=== PATIENT | male | born 1975 | race Caucasian/White ===

== ENCOUNTER 2019-04-28 07:27 | Inpatient (IN) | payer OTHER, MEDICAID ==
[2019-04-28 07:59] LABS: ADD MAN DIFF? NO
[2019-04-28 08:01] LABS: ABNORMAL IP MESSAGE 1; BASOPHIL # 0.1 10^3/ul (0.0-0.1); EOSINOPHILS # 0.2 10^3/ul (0.0-0.5); EOSINOPHILS % 4.6 % (0.0-7.0); HEMATOCRIT 20.8 % (42.0-52.0); LYMPHOCYTES # 0.9 10^3/ul (0.8-2.9); LYMPHOCYTES % 16.9 % (15.0-51.0); MEAN CORPUSCULAR HGB CONC 33.2 g/dl (32.0-37.0); MEAN CORPUSCULAR VOLUME 78.5 fl (82.0-101.0); MEAN PLATELET VOLUME 10.9 fl (7.4-10.4); MONOCYTE # 0.5 10^3/ul (0.3-0.9); MONOCYTES % 8.9 % (0.0-11.0); NEUTROPHIL # 3.4 10^3/ul (1.6-7.5); NEUTROPHILS % 67.6 % (39.0-77.0); PLATELET COUNT 180 10^3/UL (140-415); POSITIVE DIFF @See below; RED BLOOD COUNT 2.65 10^6/ul (4.70-6.10); RED CELL DISTRIBUTION WIDTH 14.6 % (11.5-14.5)
[2019-04-28 08:08] LABS: AADO2 Venous 121.9 mmHg; MODE NASAL CANNULA; MetHgb Venous 1.3 %; Sample Type Blood venous; Site OTHER; Venous Fraction OxyHgb 24.2 %; Venous Oxygen Sat 24.8 mmHG (55.0-75.0); Venous Total Hemglobin 7.1 g/dl
[2019-04-28 08:09] LABS: HEMOGLOBIN 6.9 g/dl (14.0-18.0)
[2019-04-28 08:10] LABS: PATH REVIEW? YES
[2019-04-28] MEDS: NALOXONE (0.4 MG/ML) INJ IV (08:39)
[2019-04-28 08:50] LABS: ALANINE AMINOTRANSFERASE 26 IU/L (13-69); ALBUMIN/GLOBULIN RATIO 1.53; ALKALINE PHOSPHATASE 70 IU/L (42-121); ANION GAP 14 (5-13); ASPARTATE AMINO TRANSFERASE 21 IU/L (15-46); BILIRUBIN,INDIRECT 0.1 mg/dl (0-1.1); BILIRUBIN,TOTAL 0.1 mg/dl (0.2-1.3); BLOOD UREA NITROGEN 50 mg/dl (7-20); CALCIUM 8.7 mg/dl (8.4-10.2); CARBON DIOXIDE 28 mmol/L (21-31); CHLORIDE 88 mmol/L (97-110); CREATININE 4.84 mg/dl (0.61-1.24); Estimated GFR 13 mL/min (>60); GLUCOSE 388 mg/dl (70-220); LIPASE 229 U/L (23-300); POTASSIUM 3.7 mmol/L (3.5-5.1); SODIUM 130 mmol/L (135-144); TOTAL PROTEIN 6.6 g/dl (6.1-8.1)
[2019-04-28] MEDS ORDERED: ONDANSETRON 4 MG INJ IV (09:30)
[2019-04-28] MEDS ORDERED: ACETAMINOPHEN 325 MG TAB PO (09:30)
[2019-04-28] MEDS ORDERED: SOD CHLORIDE 0.45% 1,000 ML IV (09:52)
[2019-04-28] MEDS ORDERED: ALBUTEROL/IPRATROPIUM (NEB) 3 ML AMP HHN (10:00)
[2019-04-28] MEDS ORDERED: NITROGLYCERIN (SL) 0.4 MG TAB SL (10:00)
[2019-04-28] MEDS ORDERED: DOCUSATE SODIUM 100 MG CAP PO (10:00)
[2019-04-28] MEDS ORDERED: MAGNESIUM HYDROXIDE 30ML CUP PO (10:00)
[2019-04-28] MEDS ORDERED: NACL 0.9% 3 ML SYG IV (10:00)
[2019-04-28] MEDS: PANTOPRAZOLE IV 80 MG in SOD CHLORIDE 0.9% 100 ML IV ×3 (10:00→20:29)
[2019-04-28] MEDS ORDERED: morphine 2 MG INJ IV (10:00)
[2019-04-28 10:09] LABS: ANISOCYTOSIS 2+ (0-0); BAND NEUTROPHILS #M 0.2 10^3/ul (0.0-0.6); BAND NEUTROPHILS % (M) 4 % (0-4); EOSINOPHILS % (M) 7 % (0-7); LYMPHOCYTES #M 0.8 10^3/ul (0.8-2.9); LYMPHOCYTES % (M) 16 % (15-51); MICROCYTOSIS 1+ (0-0); MONOCYTE #M 0.4 10^3/ul (0.3-0.9); MONOCYTES % (M) 9 % (0-11); PLATELET ESTIMATE NORMAL; POLYCHROMASIA 3+ (0-0); SEG NEUT #M 3.2 10^3/ul (1.6-7.5); SEGMENTED NEUTROPHILS (M) % 64 % (39-77); SMUDGE%M 3 % (0-0)
[2019-04-28 10:29] LABS: FREE T4 (FREE THYROXINE) 1.62 ng/dl (0.64-1.79)
[2019-04-28] MEDS ORDERED: GLUCAGON 1 MG INJ IM (11:00)
[2019-04-28] MEDS ORDERED: GLUCOSE GEL 15 GRAM TUBE PO ×2 (11:00)
[2019-04-28] MEDS ORDERED: GLUCOSE GEL 15 GRAM TUBE BUCCAL (11:00)
[2019-04-28] MEDS ORDERED: DEXTROSE 50% 50 ML SYRINGE IV ×2 (11:00)
[2019-04-28] MEDS: PANTOPRAZOLE IV 80 MG in SOD CHLORIDE 0.9% 100 ML IVPB (11:11)
[2019-04-28] MEDS: SEVELAMER CARBONATE 0.8 GM PKT PO ×2 (12:00→17:03)
[2019-04-28 13:46] LABS: IMMEDIATE SPIN CROSSMATCH 1 1
[2019-04-28] MEDS: INSULIN ASPART [NOVOLOG] 3 ML PEN SC ×3 (14:27→20:46)
[2019-04-28 16:01] LABS: HEPATITIS B SURFACE ANTIGEN NEGATIVE (NEGATIVE)
[2019-04-28] MEDS: hydrALAzine 20 MG INJ IV (16:03)
[2019-04-28 16:46] LABS: HEPATITIS B SURFACE ANTIBODY POSITIVE (NEGATIVE)
[2019-04-28 20:18] LABS: HEMATOCRIT 25.4 % (42.0-52.0); HEMOGLOBIN 8.3 g/dl (14.0-18.0)
[2019-04-28] MEDS: LORAZEPAM 2 MG INJ IV (20:32)
[2019-04-28] MEDS: INSULIN GLARGINE [LANTus] (100 UNITS/ML) SYG SC (20:40)
[2019-04-29] MEDS: INSULIN ASPART [NOVOLOG] 3 ML PEN SC ×6 (01:00→20:11)
[2019-04-29] MEDS: HYDROCODONE/APAP (5/325) TAB PO ×3 (05:22→23:15)
[2019-04-29] MEDS: PANTOPRAZOLE IV 80 MG in SOD CHLORIDE 0.9% 100 ML IV ×2 (05:26→17:12)
[2019-04-29 06:25] LABS: ADD MAN DIFF? NO
[2019-04-29 06:39] LABS: WHITE BLOOD COUNT 5.2 10^3/ul (4.8-10.8)
[2019-04-29 06:39] LABS: BASOPHIL # 0.1 10^3/ul (0.0-0.1); BASOPHILS % 1.3 % (0.0-2.0); EOSINOPHILS # 0.4 10^3/ul (0.0-0.5); EOSINOPHILS % 7.3 % (0.0-7.0); HEMATOCRIT 26.5 % (42.0-52.0); HEMOGLOBIN 8.5 g/dl (14.0-18.0); LYMPHOCYTES # 1.2 10^3/ul (0.8-2.9); LYMPHOCYTES % 22.6 % (15.0-51.0); MEAN CORPUSCULAR HGB CONC 32.1 g/dl (32.0-37.0); MEAN PLATELET VOLUME 10.4 fl (7.4-10.4); MONOCYTE # 0.4 10^3/ul (0.3-0.9); MONOCYTES % 8.3 % (0.0-11.0); NEUTROPHIL # 3.1 10^3/ul (1.6-7.5); NEUTROPHILS % 60.1 % (39.0-77.0); PLATELET COUNT 174 10^3/UL (140-415); RED BLOOD COUNT 3.27 10^6/ul (4.70-6.10); RED CELL DISTRIBUTION WIDTH 15.1 % (11.5-14.5)
[2019-04-29 07:04] LABS: INR 0.96; PROTIME 12.9 Sec (11.9-14.9)
[2019-04-29 07:19] LABS: CHOLESTEROL 117 mg/dl (100-200)
[2019-04-29 07:19] LABS: ANION GAP 14 (5-13); BLOOD UREA NITROGEN 64 mg/dl (7-20); CALCIUM 9.1 mg/dl (8.4-10.2); CARBON DIOXIDE 28 mmol/L (21-31); CHLORIDE 89 mmol/L (97-110); CHOL/HDL RATIO 5.5 RATIO; CREATININE 7.65 mg/dl (0.61-1.24); Estimated GFR 8 mL/min (>60); GLUCOSE 152 mg/dl (70-220); HDL CHOLESTEROL 21 mg/dl (27-67); LDL CHOLESTEROL,CALCULATED 43 mg/dl; MAGNESIUM 2.2 mg/dl (1.7-2.5); POTASSIUM 4.1 mmol/L (3.5-5.1); SODIUM 131 mmol/L (135-144); TRIGLYCERIDES 263 mg/dl (0-149)
[2019-04-29] MEDS: SEVELAMER CARBONATE 0.8 GM PKT PO ×3 (08:06→17:12)
[2019-04-29] MEDS: ONDANSETRON 4 MG INJ IV (08:07)
[2019-04-29] MEDS: FOLIC ACID 1 MG TAB PO (08:07)
[2019-04-29 08:22] LABS: HEMOGLOBIN A1C 11.1 % (0-5.9)
[2019-04-29] MEDS: EPOETIN ALFA-EPBX (ESRD) 10,000 UNIT/ML VIAL SC ×2 (08:35→12:55)
[2019-04-29] MEDS: LORAZEPAM 2 MG INJ IV ×2 (08:56→21:14)
[2019-04-29] MEDS: ALTEPLASE (CATHFLO) 2 MG INJ CATHETER (12:09)
[2019-04-29] MEDS: ISOSORBIDE MONONITRATE(SR)30 MG TAB PO (15:38)
[2019-04-29] MEDS: AMLODIPINE 10 MG TAB PO (15:38)
[2019-04-29] MEDS: INSULIN GLARGINE [LANTus] (100 UNITS/ML) SYG SC (20:11)
[2019-04-30] MEDS: PANTOPRAZOLE IV 80 MG in SOD CHLORIDE 0.9% 100 ML IV ×3 (01:53→22:43)
[2019-04-30] MEDS: ACCU-CHEK XX (01:55)
[2019-04-30] MEDS: ONDANSETRON 4 MG INJ IV ×3 (06:35→17:44)
[2019-04-30 07:34] LABS: ADD MAN DIFF? NO
[2019-04-30 07:48] LABS: WHITE BLOOD COUNT 4.6 10^3/ul (4.8-10.8)
[2019-04-30 07:48] LABS: BASOPHILS % 0.9 % (0.0-2.0); EOSINOPHILS # 0.3 10^3/ul (0.0-0.5); EOSINOPHILS % 5.8 % (0.0-7.0); HEMATOCRIT 28.2 % (42.0-52.0); LYMPHOCYTES # 1.1 10^3/ul (0.8-2.9); LYMPHOCYTES % 23.1 % (15.0-51.0); MEAN CORPUSCULAR HEMOGLOBIN 26.2 pg (29.0-33.0); MEAN CORPUSCULAR HGB CONC 31.9 g/dl (32.0-37.0); MEAN CORPUSCULAR VOLUME 82.2 fl (82.0-101.0); MEAN PLATELET VOLUME 10.6 fl (7.4-10.4); MONOCYTE # 0.5 10^3/ul (0.3-0.9); MONOCYTES % 10.3 % (0.0-11.0); NEUTROPHIL # 2.8 10^3/ul (1.6-7.5); NEUTROPHILS % 59.5 % (39.0-77.0); PLATELET COUNT 182 10^3/UL (140-415); RED BLOOD COUNT 3.43 10^6/ul (4.70-6.10); RED CELL DISTRIBUTION WIDTH 15.1 % (11.5-14.5)
[2019-04-30 08:18] LABS: ANION GAP 14 (5-13); BLOOD UREA NITROGEN 41 mg/dl (7-20); CALCIUM 9.7 mg/dl (8.4-10.2); CARBON DIOXIDE 26 mmol/L (21-31); CHLORIDE 93 mmol/L (97-110); CREATININE 7.17 mg/dl (0.61-1.24); Estimated GFR 8 mL/min (>60); GLUCOSE 249 mg/dl (70-220); POTASSIUM 4.3 mmol/L (3.5-5.1); SODIUM 133 mmol/L (135-144)
[2019-04-30] MEDS: HYDROCODONE/APAP (5/325) TAB PO ×2 (09:38→23:01)
[2019-04-30] MEDS: ISOSORBIDE MONONITRATE(SR)30 MG TAB PO (09:38)
[2019-04-30] MEDS: AMLODIPINE 10 MG TAB PO (09:38)
[2019-04-30] MEDS: FOLIC ACID 1 MG TAB PO (09:38)
[2019-04-30] MEDS: SEVELAMER CARBONATE 0.8 GM PKT PO ×3 (09:39→17:44)
[2019-04-30] MEDS: LISINOPRIL 20 MG TAB PO (09:44)
[2019-04-30] MEDS: INSULIN ASPART [NOVOLOG] 3 ML PEN SC ×7 (09:55→20:43)
[2019-04-30] MEDS: LORAZEPAM 2 MG INJ IV ×2 (11:26→21:10)
[2019-04-30] MEDS: SOD CHLORIDE 0.9% 1,000 ML IV (14:37)
[2019-04-30] MEDS: LABETALOL 200 MG TAB PO ×2 (14:37→20:43)
[2019-04-30] MEDS: INSULIN GLARGINE [LANTus] (100 UNITS/ML) SYG SC (14:58)
[2019-04-30] MEDS: BISACODYL (EC) 5 MG TAB PO (15:57)
[2019-04-30] MEDS: PEG/ELECTROLYTES 4L BTL PO (17:43)
[2019-05-01] MEDS: ONDANSETRON 4 MG INJ IV ×3 (01:38→18:08)
[2019-05-01] MEDS: ACCU-CHEK XX (02:00)
[2019-05-01] MEDS: SOD CHLORIDE 0.9% 1,000 ML IV ×3 (02:42→18:08)
[2019-05-01] MEDS: LORAZEPAM 2 MG INJ IV ×3 (03:13→18:08)
[2019-05-01] MEDS: BISACODYL (EC) 5 MG TAB PO (05:25)
[2019-05-01] MEDS: PEG/ELECTROLYTES 4L BTL PO (05:25)
[2019-05-01 05:27] LABS: ADD MAN DIFF? NO
[2019-05-01 05:29] LABS: WHITE BLOOD COUNT 5.6 10^3/ul (4.8-10.8)
[2019-05-01 05:29] LABS: BASOPHIL # 0.1 10^3/ul (0.0-0.1); BASOPHILS % 0.9 % (0.0-2.0); EOSINOPHILS # 0.3 10^3/ul (0.0-0.5); EOSINOPHILS % 5.4 % (0.0-7.0); HEMATOCRIT 25.2 % (42.0-52.0); HEMOGLOBIN 8.2 g/dl (14.0-18.0); LYMPHOCYTES # 1.2 10^3/ul (0.8-2.9); LYMPHOCYTES % 22.1 % (15.0-51.0); MEAN CORPUSCULAR HEMOGLOBIN 26.9 pg (29.0-33.0); MEAN CORPUSCULAR HGB CONC 32.5 g/dl (32.0-37.0); MEAN CORPUSCULAR VOLUME 82.6 fl (82.0-101.0); MEAN PLATELET VOLUME 9.5 fl (7.4-10.4); MONOCYTE # 0.6 10^3/ul (0.3-0.9); MONOCYTES % 10.2 % (0.0-11.0); NEUTROPHIL # 3.4 10^3/ul (1.6-7.5); NEUTROPHILS % 61.2 % (39.0-77.0); PLATELET COUNT 150 10^3/UL (140-415); RED BLOOD COUNT 3.05 10^6/ul (4.70-6.10); RED CELL DISTRIBUTION WIDTH 15.3 % (11.5-14.5)
[2019-05-01 06:26] LABS: ANION GAP 16 (5-13); BLOOD UREA NITROGEN 46 mg/dl (7-20); CALCIUM 9.5 mg/dl (8.4-10.2); CARBON DIOXIDE 23 mmol/L (21-31); CHLORIDE 94 mmol/L (97-110); CREATININE 8.57 mg/dl (0.61-1.24); Estimated GFR 7 mL/min (>60); GLUCOSE 142 mg/dl (70-220); POTASSIUM 4.3 mmol/L (3.5-5.1); SODIUM 133 mmol/L (135-144)
[2019-05-01] MEDS: HYDROCODONE/APAP (5/325) TAB PO ×2 (07:00→20:53)
[2019-05-01 07:11] LABS: IRON 51 ug/dl (35-150)
[2019-05-01 07:20] LABS: % IRON SATURATION 19 % SAT (22-52); TOTAL IRON BINDING CAPACITY 262 ug/dl (241-421)
[2019-05-01] MEDS: INSULIN ASPART [NOVOLOG] 3 ML PEN SC ×7 (07:55→21:00)
[2019-05-01] MEDS: ISOSORBIDE MONONITRATE(SR)30 MG TAB PO (08:29)
[2019-05-01] MEDS: SEVELAMER CARBONATE 0.8 GM PKT PO ×3 (08:29→19:48)
[2019-05-01] MEDS: LISINOPRIL 20 MG TAB PO (08:29)
[2019-05-01] MEDS: AMLODIPINE 10 MG TAB PO (08:29)
[2019-05-01] MEDS: LABETALOL 200 MG TAB PO ×3 (08:29→20:54)
[2019-05-01] MEDS: FOLIC ACID 1 MG TAB PO (08:29)
[2019-05-01] MEDS: PANTOPRAZOLE IV 80 MG in SOD CHLORIDE 0.9% 100 ML IV (09:41)
[2019-05-01] MEDS: PROPOFOL 60 ML (16:02)
[2019-05-01] MEDS: LIDOCAINE 2% (SDV) 5 ML INJ (16:02)
[2019-05-01] MEDS ORDERED: FENTAnyl 50 MCG/ML VIAL IV (17:30)
[2019-05-01] MEDS ORDERED: hydrALAzine 20 MG INJ IV (17:30)
[2019-05-01] MEDS ORDERED: LABETALOL HCL 20MG INJ IV (17:30)
[2019-05-01] MEDS ORDERED: ONDANSETRON 4 MG INJ IV (17:30)
[2019-05-01] MEDS ORDERED: EPHEDrine 25 MG/5 ML SYG IV (17:30)
[2019-05-01] MEDS: EPOETIN ALFA-EPBX (ESRD) 10,000 UNIT/ML VIAL SC (18:00)
[2019-05-01] MEDS ORDERED: COLLAGENASE 5 GM (UD JAR) TOP ×2 (20:30)
[2019-05-01] MEDS: COLLAGENASE 5 GM (UD JAR) TOP (21:28)
[2019-05-01] MEDS: INSULIN GLARGINE [LANTus] (100 UNITS/ML) SYG SC (21:30)
[2019-05-02] MEDS: LOPERAMIDE 2 MG CAP PO ×2 (00:04→05:26)
[2019-05-02] MEDS: ACETAMINOPHEN 325 MG TAB PO (00:35)
[2019-05-02] MEDS: LORAZEPAM 2 MG INJ IV ×3 (00:56→12:56)
[2019-05-02] MEDS: ONDANSETRON 4 MG INJ IV ×3 (00:56→12:56)
[2019-05-02] MEDS: ACCU-CHEK XX (02:00)
[2019-05-02] MEDS: HYDROCODONE/APAP (5/325) TAB PO ×2 (02:29→08:57)
[2019-05-02] MEDS: HEPARIN 1000 UNITS/ML 10 ML INJ CATHETER (04:48)
[2019-05-02] MEDS ORDERED: PANTOPRAZOLE (EC) 40 MG TAB PO (04:53)
[2019-05-02] MEDS: PANTOPRAZOLE (EC) 40 MG TAB PO (05:26)
[2019-05-02] MEDS: ISOSORBIDE MONONITRATE(SR)30 MG TAB PO (08:49)
[2019-05-02] MEDS: LABETALOL 200 MG TAB PO ×2 (08:52→12:22)
[2019-05-02] MEDS: INSULIN ASPART [NOVOLOG] 3 ML PEN SC ×4 (08:54→12:21)
[2019-05-02] MEDS: LISINOPRIL 20 MG TAB PO (08:55)
[2019-05-02] MEDS: FOLIC ACID 1 MG TAB PO (08:55)
[2019-05-02] MEDS: AMLODIPINE 10 MG TAB PO (08:56)
[2019-05-02] MEDS: SEVELAMER CARBONATE 0.8 GM PKT PO ×2 (08:58→12:15)
[2019-05-02] MEDS: COLLAGENASE 5 GM (UD JAR) TOP (08:58)
[2019-05-02 10:33] LABS: ADD MAN DIFF? NO
[2019-05-02 10:36] LABS: WHITE BLOOD COUNT 4.6 10^3/ul (4.8-10.8)
[2019-05-02 10:36] LABS: BASOPHIL # 0.1 10^3/ul (0.0-0.1); BASOPHILS % 1.1 % (0.0-2.0); EOSINOPHILS # 0.2 10^3/ul (0.0-0.5); EOSINOPHILS % 4.1 % (0.0-7.0); LYMPHOCYTES # 0.9 10^3/ul (0.8-2.9); LYMPHOCYTES % 19.9 % (15.0-51.0); MEAN CORPUSCULAR HEMOGLOBIN 25.8 pg (29.0-33.0); MEAN CORPUSCULAR HGB CONC 30.8 g/dl (32.0-37.0); MEAN CORPUSCULAR VOLUME 83.9 fl (82.0-101.0); MEAN PLATELET VOLUME 10.5 fl (7.4-10.4); MONOCYTE # 0.5 10^3/ul (0.3-0.9); MONOCYTES % 10.5 % (0.0-11.0); NEUTROPHIL # 2.9 10^3/ul (1.6-7.5); PLATELET COUNT 159 10^3/UL (140-415); RED CELL DISTRIBUTION WIDTH 15.8 % (11.5-14.5)
[2019-05-02 11:01] LABS: ANION GAP 11 (5-13); BLOOD UREA NITROGEN 31 mg/dl (7-20); CALCIUM 9.2 mg/dl (8.4-10.2); CARBON DIOXIDE 25 mmol/L (21-31); CHLORIDE 96 mmol/L (97-110); CREATININE 7.36 mg/dl (0.61-1.24); Estimated GFR 8 mL/min (>60); GLUCOSE 229 mg/dl (70-220); POTASSIUM 4.5 mmol/L (3.5-5.1); SODIUM 132 mmol/L (135-144)
== END 2019-05-02 15:15 | disposition home or self-care (01) | DRG 91 ==
LOC: PP2 05-02 00:22 → E/R 07:27 → TEL 09:09
PROVIDERS: Hospitalist
PROC: 0DB78ZX Excision of Stomach, Pylorus, Via Natural or Artificial Opening Endoscopic, Diagnostic (ICD-10-PCS; principal; 2019-05-01 14:39)
PROC: 0DJD8ZZ Inspection of Lower Intestinal Tract, Via Natural or Artificial Opening Endoscopic (ICD-10-PCS; 2019-05-01 14:39)
PROC: 5A1D70Z Performance of Urinary Filtration, Intermittent, Less than 6 Hours Per Day (ICD-10-PCS; 2019-05-01 14:39)
PROC: 4A033R1 Measurement of Arterial Saturation, Peripheral, Percutaneous Approach (ICD-10-PCS; 2019-05-01 14:39)
PROC: 30233N1 Transfusion of Nonautologous Red Blood Cells into Peripheral Vein, Percutaneous Approach (ICD-10-PCS; 2019-05-01 14:39)
DX: G92 Toxic encephalopathy (principal); K25.4 Chronic or unspecified gastric ulcer with hemorrhage; N18.6 End stage renal disease; K29.71 Gastritis, unspecified, with bleeding; K29.81 Duodenitis with bleeding; E87.1 Hypo-osmolality and hyponatremia; I12.0 Hypertensive chronic kidney disease with stage 5 chronic kidney disease or end stage renal disease; D50.0 Iron deficiency anemia secondary to blood loss (chronic); D63.1 Anemia in chronic kidney disease; E11.22 Type 2 diabetes mellitus with diabetic chronic kidney disease; E78.00 Pure hypercholesterolemia, unspecified; E11.40 Type 2 diabetes mellitus with diabetic neuropathy, unspecified; I25.2 Old myocardial infarction; E11.65 Type 2 diabetes mellitus with hyperglycemia; I25.10 Atherosclerotic heart disease of native coronary artery without angina pectoris; K64.8 Other hemorrhoids; Z99.2 Dependence on renal dialysis; Z79.4 Long term (current) use of insulin; Z79.02 Long term (current) use of antithrombotics/antiplatelets; T40.2X5A Adverse effect of other opioids, initial encounter
CPT/HCPCS: 36415; 36430; 70450; 71045; 80048; 80053; 80061; 82803; 82962; 83036; 83540; 83690; 83735; 84100; 84439; 84443; 85014; 85018; 85025; 85610; 86706; 86850; 86900; 86901; 86920; 87340; 88305; 88312; 90935; 93005; 96374; 97161; 97166; 99285-25